=== PATIENT | male | born 1950 | race Caucasian/White ===

== ENCOUNTER → 2017-12-19 | Outpatient (CLI) | payer MEDICARE ==
[~2017-12-19] MED LIST: HYDR-3583 PO; LISI10TA3 PO; LORA2TAB7 PO; OMEP20TA93 PO; ROSU40 PO; TAMS0.4C4 PO
--- NOTE | 2017-12-20 15:59 | RADRPT ---
EXAM DATE: 12/19/2017 2:24 PM EDT AGE/SEX: 67 years / Male INDICATIONS: Intermittent claudication CLINICAL DATA: This is the patient's initial encounter. Patient reports that signs and symptoms have been present for > 1 year and indicates a pain score of 2/10. MEDICAL/SURGICAL HISTORY: . Back pain, hypercholesterolemia, hypertension, anxiety, alcohol use . Cardiac stents, back surgery COMPARISON: No prior [facility] exams available for comparison. TECHNIQUE: Five-station segmental examination of the lower extremities was performed pre and post ex ercise. Pulsed-cuff waveform tracings and pressures were recorded. Ankle-brachial indices and toe-bra chial indices were calculated. PRESSURES (mmHg): Pre Exercise: Brachial (arm) : RIGHT: 102, LEFT: 112 Ankle : RIGHT: 141, LEFT: 138 LASHA : RIGHT: 1.26, LEFT: 1.23 Toe : RIGHT: 154, LEFT: 142 TBI : RIGHT: 1.38, LEFT: 1.27 Post Exercise: Brachial : RIGHT: , LEFT: 117 LASHA : RIGHT: 1.21, LEFT: 1.16 CONCLUSION: 1. No evidence for hemodynamically significant vascular occlusive disease. Electronically signed by: Alexys Garcia MD 12/19/2017 2:54 PM EDT
== END ==
LOC: HCAV 12:11
PROVIDERS: ATTEND Internal Medicine Gastroenterology
DX: I70.219 Atherosclerosis of native arteries of extremities with intermittent claudication, unspecified extremity (principal)
CPT/HCPCS: 93924